=== PATIENT | male | born 1955 | race Caucasian/White ===

== ENCOUNTER 2016-04-26 12:10 | Day surgery (SDC) | payer OTHER ==
[~2016-04-26] VITALS: Ht 175.3 cm; Wt 87.7 kg
[~2016-04-26 12:10] MED LIST: BACTDS PO; CEPH-443 PO; HYDR-3498 PO
[2016-04-26 12:57] VITALS: Ht 175.3 cm; Wt 87.7 kg
[2016-04-26 13:13] VITALS: BP 122/59; PULSE 58; RESP 14
[2016-04-26] MEDS ORDERED: LISI-313 PO (13:17)
[2016-04-26] MEDS ORDERED: METF500T4 PO (13:17)
[2016-04-26] MEDS ORDERED: CYCL25CA2 PO (13:17)
[2016-04-26] MEDS ORDERED: OMEP20CA16 PO (13:17)
[2016-04-26] MEDS ORDERED: MET25 PO (13:17)
[2016-04-26] MEDS ORDERED: PRED20TA PO (13:17)
[2016-04-26] MEDS ORDERED: MIDAZOLAM 1 MG/ML 2 ML INJ ONE ×2 (14:31→14:32)
[2016-04-26] MEDS ORDERED: FENTAnyl 50 MCG/ML VIAL ONE (14:31)
[2016-04-26 14:50] VITALS: BP 104/57; RESP 20
--- NOTE | 2016-04-26 15:22 | GILP ---
DATE OF PROCEDURE: NAME OF PROCEDURES: Colonoscopy, biopsy and polypectomy. SURGEON: David Humphrey MD. PREOPERATIVE DIAGNOSIS: Positive occult blood in stool. POSTOPERATIVE DIAGNOSES 1. Colonoscopy all the way to the cecum. 2. Sigmoid polyp at 15 cm from the anus. It was removed using the snare and electrocautery. 3. Small transverse colon polyp was removed using the biopsy forceps. 4. Cecal polyp was removed using the biopsy forceps. 5. Large internal hemorrhoids. INDICATION FOR THE PROCEDURE: Mr. Ian Garner is a 60-year-old male patient who was noted to have positive occult blood in stool. The patient was scheduled for colonoscopy for further evaluation. The procedure and possible complications are well explained to the patient. He understood and consented to the procedure. DESCRIPTION OF PROCEDURE: Under the influence of fentanyl and Versed, the colonoscope was carefully introduced in the rectum, and under direct vision, it was advanced all the way to the cecum. FINDINGS: The patient had a sigmoid colon polyp at 15 cm from the anus and it was removed using the snare and electrocautery. The patient also had a transverse colon polyp as well as a cecal polyp and they were removed using the biopsy forceps. . He had large internal hemorrhoids. He tolerated the procedure very well and there was no complication from the procedure. At the end of the procedure, he was awake with stable vital signs and he was discharged home to the care of his family. IMPRESSION: 1. Colonoscopy all the way to the cecum. 2. Sigmoid colon polyp at 15 cm from the anus was removed using the snare and electrocautery. 3. Transverse colon and cecal polyps were removed using the biopsy forceps. 4. Large internal hemorrhoids. PLAN: 1. Await histopathology report. 2. The patient will need followup colonoscopy in 3 years. Dictated By: DAVID TOLENTINO/MONA Conf#: [id number] DID#: [id number]
== END 2016-04-26 15:55 | disposition home or self-care (01) ==
LOC: GIL 12:10
PROVIDERS: ATTEND Internal Medicine Gastroenterology
DX: D12.3 Benign neoplasm of transverse colon (principal); D12.0 Benign neoplasm of cecum; D12.5 Benign neoplasm of sigmoid colon; K64.8 Other hemorrhoids; E11.9 Type 2 diabetes mellitus without complications; I10 Essential (primary) hypertension
CPT/HCPCS: 45380; 82962; 88305; J2250; J3010; Z7610

== ENCOUNTER 2016-05-22 13:13 | Emergency (ER) | payer OTHER ==
[~2016-05-22] VITALS: Ht 175.3 cm; Wt 89.0 kg
[~2016-05-22 13:13] MED LIST changes: -BACTDS PO; -CEPH-443 PO; +CYCL25CA2 PO; -HYDR-3498 PO; +LISI-313 PO; +MET25 PO; +METF500T4 PO; +OMEP20CA16 PO; +PRED20TA PO
[2016-05-22 13:17] VITALS: Ht 175.3 cm; Wt 89.0 kg
[2016-05-22] MEDS ORDERED: CEPH-443 PO (16:16)
[2016-05-22] MEDS ORDERED: IBUP-1542 PO (16:16)
[2016-05-22] MEDS ORDERED: BACTDS PO (16:16)
[2016-05-22 16:35] VITALS: BP 125/64; PULSE 71; RESP 19; TEMP 99.1
--- NOTE | 2016-05-22 18:22 | ERA ---
ER Documentation Chief Complaint Date/Time DATE: 05/22/16 TIME: 18:19 Chief Complaint Complains of right arm swelling after being bit HPI Patient is a 60-year-old male who presents complaining of cellulitis. Patient has a history of dermatomyositis. Has had symptoms like this before. Was prescribed Bactrim and Keflex and symptoms resolved. Reports a history of an insect bite for 5 days ago. Pt denies weight loss, fevers, nausea, vomiting, diarrhea, constipation, hyperhidrosis, rigors, fatigue, dyspnea, malaise or depression. No other associated manifestations. Nothing has made the cellulitis worse or better. ROS All systems reviewed and are negative except as per history of present illness. Medications Home Meds Active Scripts Ibuprofen* (Motrin*) 600 Mg Tab, 600 MG PO Q6H Y for PAIN AND OR ELEVATED TEMP, #30 TAB Prov:ALLYN CRISOSTOMO PA-C 05/22/16 Sulfamethoxazole-Trimethoprim* (Bactrim* DS) 800-160 Mg Tab, 1 TAB PO DAILY for 5 Days, TAB Prov:ALLYN CRISOSTOMO PA-C 05/22/16 Cephalexin* (Keflex*) 500 Mg Capsule, 500 MG PO QID for 5 Days, CAP Prov:ALLYN CRISOSTOMO PA-C 05/22/16 Reported Medications Methotrexate* (Methotrexate*) 2.5 Mg Tab, 7.5 MG PO, TAB 04/26/16 Prednisone* (Prednisone*) 20 Mg Tab, 20 MG PO DAILY, TAB 04/26/16 Cyclosporine* (Cyclosporine* Modified) 25 Mg Capsule, 25 MG PO BID, #60 CAP 04/26/16 Omeprazole* (Omeprazole*) 20 Mg Capsule.dr, 20 MG PO BID, #60 CAP 04/26/16 Metformin* (Glucophage*) 500 Mg Tab, 500 MG PO WITH LUNCH DINNER, #60 TAB 04/26/16 Lisinopril* (Lisinopril*) 5 Mg Tablet, 5 MG PO DAILY, #30 TAB 04/26/16 Allergies Allergies: Coded Allergies: No Known Allergy (Unverified , 10/12/14) PMhx/Soc History of Surgery: Yes (APPENDECTOMY) Anesthesia Reaction: No Hx Neurological Disorder: No Hx Respiratory Disorders: No Hx Cardiac Disorders: Yes (HTN) Hx Psychiatric Problems: No Hx Miscellaneous Medical Probl: No Hx Alcohol Use: No Hx Substance Use: No Hx Tobacco Use: No Physical Exam Vitals Vital Signs Date Time Temp Pulse Resp B/P Pulse Ox O2 Delivery O2 Flow Rate FiO2 05/22/16 16:35 99.1 71 19 125/64 100 Room Air 05/22/16 13:17 99.7 86 20 127/60 99 Physical Exam Const: Well-appearing 60-year-old male. Head: Atraumatic Eyes: Normal Conjunctiva ENT: Normal External Ears, Nose and Mouth. Neck: Full range of motion..~ No meningismus. Resp: Clear to auscultation bilaterally Cardio: Regular rate and rhythm, no murmurs Abd: Soft, non tender, non distended. Normal bowel sounds Skin: No petechiae or rashes Back: No midline or flank tenderness Ext: No cyanosis, or edema Neur: Awake and alert Psych: Normal Mood and Affect Procedures/MDM Patient is a 60-year-old male who has a history of dermatomyositis he comes in complaining of cellulitis and has had symptoms like this before. Patient's right arm has a small luther on it that he claims is where a bug has bitten him. Right triceps area is swollen, erythematous, warm to touch, and tender to palpation. Patient says that the last time this happened he was prescribed Keflex and Bactrim and said antibiotics worked. We will go ahead and prescribe the same antibiotics. As well as ibuprofen for pain and inflammation. Departure Diagnosis: Primary Impression: Dermatomyositis Additional Impression: Cellulitis Condition: Stable Patient Instructions: Cellulitis Additional Instructions: Return to emergency department immediately if symptoms do not improve or persist. ALLYN CRISOSTOMO PA-C May 22, 2016 18:22
== END 2016-05-22 16:35 | disposition home or self-care (01) ==
LOC: FTE 13:13
DX: M33.90 Dermatopolymyositis, unspecified, organ involvement unspecified (principal); I10 Essential (primary) hypertension; E11.9 Type 2 diabetes mellitus without complications; Z79.84 Long term (current) use of oral hypoglycemic drugs
CPT/HCPCS: 99284

== ENCOUNTER 2017-03-22 13:54 | Emergency (ER) | END 2017-03-22 16:37 | disposition home or self-care (01) ==

== ENCOUNTER 2017-08-15 19:03 | Emergency (ER) | END 2017-08-15 19:30 | disposition home or self-care (01) ==

== ENCOUNTER 2018-06-18 06:59 | Day surgery (SDC) | payer OTHER ==
[~2018-06-18] VITALS: Ht 172.7 cm; Wt 86.6 kg
[~2018-06-18 06:59] MED LIST changes: +ACET325T33 PO; +BACTDS PO; +CEPH-443 PO; +CYCL25CA10 PO; -CYCL25CA2 PO; +IBUP-1542 PO; +LORA1TAB54 PO; +METF-849 PO; -METF500T4 PO; +PROM5SYR2 PO; +SULF1TAB31 PO
--- NOTE | 2018-06-18 08:08 | PREAC ---
Date/Time of Note Date/Time of Note DATE: 06/18/18 TIME: 08:05 Anesthesia Eval and Record Evaluation Time Pre-Procedure Interview DATE: 06/18/18 TIME: 08:05 Age 62 Sex male NPO: 8 hrs Preoperative diagnosis positive occult blood Planned procedure colonoscopy Past Medical History Past Medical History: Includes Cardio: HTN, Dyslipidemia Endo: Diabetes GI: GERD, Other (hx colon polyps) Infection(s): Other (dermatomyositis) Surgery & Anesthesia Issues No known issue Meds Anticoagulation: No Beta Chantel within 24 hr: No Reason Beta Chantel not given: Pt. not on B-Chantel Active Scripts Sulfamethoxazole/Trimethoprim* (Bactrim Ds* Tablet) 1 Each Tablet, 1 TAB PO BID, #14 TAB Prov:NURYS JAEGER PA-C 08/15/17 Cephalexin* (Keflex*) 500 Mg Capsule, 500 MG PO QID for 7 Days, CAP Prov:NURYS JAEGER PA-C 08/15/17 Acetaminophen* (Tylenol*) 325 Mg Tablet, 2 TAB PO Q6 PRN for PAIN AND OR ELEVATED TEMP, #30 TAB Prov:NELLIE PEREZ PA-C 03/22/17 Promethazine HCl/Codeine (Prometh-Codein 6.25-10 mg/5 ml) 5 Ml Syrup, 5 ML PO Q4, #60 Prov:NELLIE PEREZ PA-C 03/22/17 Loratadine/Pseudoephedrine* (Claritin-D* 12 Hr) 5-120 Mg Tab.er.12h, 1 TAB PO Q12, #30 TAB.SA Prov:NELLIE PEREZ PA-C 03/22/17 Ibuprofen* (Motrin*) 600 Mg Tab, 600 MG PO Q6H PRN for PAIN AND OR ELEVATED TEMP, #30 TAB Prov:ALLYN CRISOSTOMO PA-C 05/22/16 Sulfamethoxazole-Trimethoprim* (Bactrim* DS) 800-160 Mg Tab, 1 TAB PO DAILY for 5 Days, TAB Prov:ALLYN CRISOSTOMO PA-C 05/22/16 Cephalexin* (Keflex*) 500 Mg Capsule, 500 MG PO QID for 5 Days, CAP Prov:ALLYN CRISOSTOMO PA-C 05/22/16 Reported Medications Methotrexate* (Methotrexate*) 2.5 Mg Tab, 7.5 MG PO, TAB 04/26/16 Prednisone* (Prednisone*) 20 Mg Tab, 20 MG PO DAILY, TAB 04/26/16 Cyclosporine* (Cyclosporine* Modified) 25 Mg Capsule, 25 MG PO BID, #60 CAP 04/26/16 Omeprazole* (Omeprazole*) 20 Mg Capsule.dr, 20 MG PO BID, #60 CAP 04/26/16 Metformin* (Glucophage*) 500 Mg Tab, 500 MG PO WITH LUNCH DINNER, #60 TAB 04/26/16 Lisinopril* (Lisinopril*) 5 Mg Tablet, 5 MG PO DAILY, #30 TAB 04/26/16 Meds reviewed: Yes Allergies Coded Allergies: No Known Allergy (Unverified , 10/12/14) Allergies Reviewed: Yes Labs/Studies Labs Reviewed: Reviewed by anesthesiologist test: N/A Pre-procedure Exam Airway: Adequate mouth opening, Adequate thyromental dist Mallampati: Mallampati II Teeth: Normal Lung: Normal Heart: Normal ASA Physical Status ASA physical status: 3 Emergency: None Planned Anesthetic General/MAC: MAC Planned Pain Management Parenteral pain med, Local by surgeon Pre-operative Attestations Prior to commencing anesthesia and surgery, the patient was re-evaluated, there was verification of: *The patient's identity *The results of appropriate recent lab work and preoperative vital signs *The above evaluation not changing prior to induction *Anesthetic plan, risk benefits, alternative and complications discussed with patient/family; questions answered; patient/family understands, accepts and wishes to proceed. HERMELINDO CROUCH Jun 18, 2018 08:08
[2018-06-18] MEDS ORDERED: PROPOFOL 40 ML ONE (08:09)
[2018-06-18] MEDS ORDERED: LOSARTAN (08:12)
[2018-06-18] MEDS ORDERED: TRAMADOL (08:12)
[2018-06-18 08:29] VITALS: Ht 172.7 cm; Wt 86.6 kg
[2018-06-18 08:32] VITALS: BP 127/63; PULSE 63; RESP 16
--- NOTE | 2018-06-18 10:10 | PAC ---
Date/Time of Note Date/Time of Note DATE: 06/18/18 TIME: 10:09 Post-Anesthesia Notes Post-Anesthesia Note Last documented vital signs POST BP 120/68 HR 64 spo2 99% Temp 97.5 RR 16 Vital Signs Date Temp Pulse Resp B/P (MAP) Pulse Ox O2 O2 Flow FiO2 Time Delivery Rate 06/18/18 99.2 63 16 127/63 99 Room Air 08:32 (84) Activity: WNL Respiratory function: WNL Cardiovascular function: WNL Mental status: Baseline Pain reasonably controlled: Yes Hydration appropriate: Yes Nausea/Vomiting absent: Yes HERMELINDO CROUCH Jun 18, 2018 10:10
[2018-06-18 10:22] VITALS: BP 130/68; PULSE 54; RESP 17
== END 2018-06-18 11:49 | disposition home or self-care (01) ==
LOC: GIL 06:59
PROVIDERS: ATTEND Internal Medicine Gastroenterology
DX: K92.1 Melena (principal); D12.3 Benign neoplasm of transverse colon; K64.8 Other hemorrhoids; I10 Essential (primary) hypertension; E78.5 Hyperlipidemia, unspecified; E11.9 Type 2 diabetes mellitus without complications
CPT/HCPCS: 45380; 82962; Z7610; 88305